=== PATIENT | male | born 1985 | race Hispanic/Latino ===

== ENCOUNTER 2019-02-03 16:59 | Emergency (ER) | payer SELFPAY ==
[2019-02-03] MEDS ORDERED: hydrOXYzine 25 MG TAB ONE (18:25)
== END 2019-02-03 20:00 | disposition home or self-care (01) ==
LOC: ERS 16:59
DX: F10.180 Alcohol abuse with alcohol-induced anxiety disorder (principal); E78.5 Hyperlipidemia, unspecified; I10 Essential (primary) hypertension; F32.9 Major depressive disorder, single episode, unspecified; Z79.899 Other long term (current) drug therapy
CPT/HCPCS: 99284

== ENCOUNTER 2021-03-08 15:19 | Emergency (ER) | payer SELFPAY | END 2021-03-08 18:45 | disposition left against medical advice (07) | LOC: ERS 15:19 | DX: Z53.21 Procedure and treatment not carried out due to patient leaving prior to being seen by health care provider (principal) | CPT/HCPCS: 71045; 94760 ==